=== PATIENT | female | born 1955 | race Caucasian/White ===

== ENCOUNTER → 2023-09-14 | Outpatient (CLI) | payer MEDICARE | LOC: RESCLI 14:54 | PROVIDERS: ATTEND Internal Medicine | DX: I50.9 Heart failure, unspecified (principal); R11.0 Nausea; R56.9 Unspecified convulsions; F41.9 Anxiety disorder, unspecified; Z79.899 Other long term (current) drug therapy; Z86.711 Personal history of pulmonary embolism ==

== ENCOUNTER 2024-12-01 12:15 | Inpatient (IN) | payer MEDICARE ==
[~2024-12-01] VITALS: Ht 157.5 cm; Wt 51.7 kg
[2024-12-01] MEDS ORDERED: DIOVAN80 M1 PO (12:49)
[2024-12-01] MEDS ORDERED: SENNA8.6 MG PO (12:50)
[2024-12-01] MEDS ORDERED: AMITRIPTYLINE25 MG PO (12:51)
[2024-12-01] MEDS ORDERED: ZOLOFT100 MG PO (12:51)
[2024-12-01] MEDS ORDERED: COREG6.25 MG PO (12:52)
[2024-12-01] MEDS ORDERED: SINGULAIR10 M1 PO (12:55)
[2024-12-01] MEDS ORDERED: XARELTO15 M1 PO (12:57)
[2024-12-01] MEDS ORDERED: 8 HOUR650 MG PO (12:58)
[2024-12-01] MEDS ORDERED: KEPPRA500 MG PO (12:58)
[2024-12-01] MEDS ORDERED: LORAZEPAM0.5 M1 PO (12:59)
[2024-12-01] MEDS ORDERED: Ziprasidone Mesylate 20 MG VIAL IM PRN (13:05)
[2024-12-01] MEDS ORDERED: LORazepam 1 MG TAB PO PRN (13:05)
[2024-12-01] MEDS ORDERED: hydrOXYzine hydrochloride 50 MG/ML VIAL IM PRN (13:05)
[2024-12-01 13:08] VITALS: BP 111/59
[2024-12-01] MEDS ORDERED: DIOVAN40 MG PO (14:10)
[2024-12-01] MEDS ORDERED: Magnesium Hydroxide 30 ML UDC PO PRN (14:40)
[2024-12-01] MEDS ORDERED: ACETAMINOPHEN 325 MG TAB PO PRN (14:40)
[2024-12-01] MEDS ORDERED: MG-AL HYDROXIDE/SIMETICONE 30 ML UDC PO PRN (14:40)
[2024-12-01] MEDS ORDERED: Menthol/Zinc Oxide 4 GM THIN T PRN (14:50)
[2024-12-01 20:00] VITALS: BP 110/68
[2024-12-01] MEDS ORDERED: Mirtazapine 15 MG TAB PO SCH (21:00)
[2024-12-01] MEDS ORDERED: Montelukast Sodium 10 MG TAB PO SCH (21:00)
[2024-12-01] MEDS ORDERED: CARVEDILOL 6.25 MG TAB PO SCH (21:00)
[2024-12-01] MEDS ORDERED: LEVETIRACETAM 500 MG TAB PO SCH (21:00)
[2024-12-01] MEDS ORDERED: Memantine Hydrochloride 5 MG TAB PO SCH (22:00)
[2024-12-02 06:37] LABS: HEMATOCRIT 32.1 % (37.0-47.0); MEAN CELL VOLUME 88.7 fl (81.0-99.0); MEAN CORPUSCULAR HGB 29.3 pg (27.0-31.0); MEAN PLATELET VOLUME 9.4 fl (9.6-12.3); PLATELET COUNT AUTOMATED 129 10*3/uL (130-400); RED BLOOD COUNT 3.62 10*6/uL (4.10-5.10); RED CELL DISTRI WIDTH 14.4 % (0-14.5); WHITE BLOOD COUNT 15.2 10*3/uL (4.8-10.8)
[2024-12-02 07:05] LABS: ALKALINE PHOSPHATASE 132 U/L (46-116); BUN 29 mg/dl (9-23); CHLORIDE 103 mmol/L (98-107); POTASSIUM 4.5 mmol/L (3.4-5.1); SGPT/ALT 17 U/L (5-49); TOTAL PROTEIN 7.3 gm/dL (6.0-8.0)
[2024-12-02 07:08] LABS: VALPROIC ACID (DEPAKENE) < 3.0 ug/ml (50-100)
[2024-12-02 08:00] VITALS: BP 136/77
[2024-12-02 08:37] LABS: VITAMIN D, 25-HYDROXY 47.3 ng/mL (30-100)
[2024-12-02] MEDS ORDERED: RIVAROXABAN 15 MG TAB PO SCH (09:00)
[2024-12-02] MEDS ORDERED: Losartan Potassium 25 MG TAB PO SCH (09:00)
[2024-12-02] MEDS ORDERED: Rivastigmine Tartrate 4.6 MG/24 HR PATCH T SCH (09:00)
[2024-12-02 09:14] LABS: ATYPICAL LYMPHS 1 % (0-0); TOTAL CELLS COUNTED 100 #CELLS
[2024-12-02 09:15] LABS: OVALOCYTES FEW
[2024-12-02 09:16] LABS: PLATELET SUFFICIENCY LOW (NORMAL); SCHISTOCYTES FEW
[2024-12-02] MEDS ORDERED: hydrOXYzine hydrochloride 50 MG/ML VIAL IM SCH (09:45)
[2024-12-02] MEDS ORDERED: hydrOXYzine pamoate 25 MG CAP PO SCH (18:00)
[2024-12-02 19:36] LABS: BILIRUBIN Negative (Negative); BLOOD Negative (Negative); CLARITY Clear (Clear); COLOR Yellow (Yellow); GLUCOSE Negative (Negative); KETONE Negative (Negative); LEUKO ESTERASE Negative (Negative); NITRITE Negative (Negative); PH 5.5 (4.5-8.0); SPECIFIC GRAVITY 1.015 (1.001-1.030); UROBILINOGEN 0.2 E.U./dl (0.0-1.0)
[2024-12-02 19:44] LABS: BACTERIA TRACE
[2024-12-02 20:00] VITALS: BP 138/71
[2024-12-03] MEDS ORDERED: Water, Sterile 10 ML VIAL ONE (00:39)
[2024-12-03 08:03] VITALS: BP 116/60
[2024-12-03 09:16] LABS: HEMATOCRIT 31.9 % (37.0-47.0); MEAN CELL VOLUME 88.9 fl (81.0-99.0); MEAN CORPUSCULAR HGB CONC 32.6 g/dl (33.0-37.0); MEAN PLATELET VOLUME 9.4 fl (9.6-12.3); PLATELET COUNT AUTOMATED 115 10*3/uL (130-400); RED BLOOD COUNT 3.59 10*6/uL (4.10-5.10); RED CELL DISTRI WIDTH 14.1 % (0-14.5); WHITE BLOOD COUNT 10.7 10*3/uL (4.8-10.8)
[2024-12-03 09:19] LABS: MANUAL DIFF REFLEX YES
[2024-12-03 09:40] LABS: POTASSIUM 4.6 mmol/L (3.4-5.1)
[2024-12-03 09:50] LABS: TOTAL CELLS COUNTED 100 #CELLS
[2024-12-03 09:54] LABS: OVALOCYTES FEW; PLATELET SUFFICIENCY LOW (NORMAL)
[2024-12-03 20:00] VITALS: BP 102/54
[2024-12-03] MEDS ORDERED: Memantine Hydrochloride 5 MG TAB PO SCH (21:00)
[2024-12-04 08:00] VITALS: BP 114/53
[2024-12-04 20:00] VITALS: BP 130/90
[2024-12-04] MEDS ORDERED: Memantine Hydrochloride 10 MG TAB PO SCH (21:00)
[2024-12-05 08:00] VITALS: BP 141/64
[2024-12-05] MEDS ORDERED: Rivastigmine Tartrate 9.5 MG/24 HR PATCH T SCH (09:00)
[2024-12-05 20:00] VITALS: BP 116/50
[2024-12-05] MEDS ORDERED: RAMELTEON 8 MG TAB PO SCH (21:00)
[2024-12-06 08:00] VITALS: BP 134/74
[2024-12-06 20:00] VITALS: BP 137/73
[2024-12-06] MEDS ORDERED: hydrOXYzine hydrochloride 50 MG/ML VIAL IM SCH (21:00)
[2024-12-07 08:01] VITALS: BP 122/59
[2024-12-07] MEDS ORDERED: hydrOXYzine hydrochloride 50 MG/ML VIAL IM SCH (09:00)
[2024-12-07] MEDS ORDERED: hydrOXYzine pamoate 25 MG CAP PO SCH (13:00)
[2024-12-07 20:00] VITALS: BP 113/54
[2024-12-08 08:00] VITALS: BP 100/77
[2024-12-08] MEDS ORDERED: RIVASTIGMINE 13.3 MG/24 HR TDM T SCH (09:00)
[2024-12-08 20:00] VITALS: BP 116/46
[2024-12-09 07:48] LABS: POTASSIUM 4.8 mmol/L (3.4-5.1); TOTAL PROTEIN 6.8 gm/dL (6.0-8.0)
[2024-12-09 07:55] LABS: HEMATOCRIT 32.6 % (37.0-47.0); MEAN CELL VOLUME 89.6 fl (81.0-99.0); MEAN CORPUSCULAR HGB 28.8 pg (27.0-31.0); MEAN CORPUSCULAR HGB CONC 32.2 g/dl (33.0-37.0); MEAN PLATELET VOLUME 9.6 fl (9.6-12.3); PLATELET COUNT AUTOMATED 127 10*3/uL (130-400); RED BLOOD COUNT 3.64 10*6/uL (4.10-5.10); RED CELL DISTRI WIDTH 13.9 % (0-14.5); WHITE BLOOD COUNT 17.2 10*3/uL (4.8-10.8)
[2024-12-09 08:00] VITALS: BP 106/77
[2024-12-09 09:32] LABS: MANUAL DIFF REFLEX YES
[2024-12-09 09:36] LABS: ATYPICAL LYMPHS 6 % (0-0); PLATELET SUFFICIENCY NORMAL (NORMAL); TOTAL CELLS COUNTED 100 #CELLS
[2024-12-09] MEDS ORDERED: LEVOFLOXACIN 500 MG TAB PO SCH (10:30)
[2024-12-09] MEDS ORDERED: SODIUM CHLORIDE 0.9% 1,000 ML IV ONE (15:00)
[2024-12-09 22:00] VITALS: BP 127/60
[2024-12-10 07:18] LABS: HEMATOCRIT 27.8 % (37.0-47.0); MEAN CELL VOLUME 90.8 fl (81.0-99.0); MEAN CORPUSCULAR HGB 28.8 pg (27.0-31.0); MEAN CORPUSCULAR HGB CONC 31.7 g/dl (33.0-37.0); MEAN PLATELET VOLUME 9.8 fl (9.6-12.3); PLATELET COUNT AUTOMATED 108 10*3/uL (130-400); RED BLOOD COUNT 3.06 10*6/uL (4.10-5.10); RED CELL DISTRI WIDTH 13.9 % (0-14.5); WHITE BLOOD COUNT 11.7 10*3/uL (4.8-10.8)
[2024-12-10 07:47] LABS: MANUAL DIFF REFLEX YES
[2024-12-10] MEDS ORDERED: SODIUM CHLORIDE 0.9% 1,000 ML IV ONE (08:07)
[2024-12-10 08:19] VITALS: BP 105/51
[2024-12-10 09:41] LABS: ATYPICAL LYMPHS 4 % (0-0); TOTAL CELLS COUNTED 100 #CELLS
[2024-12-10 09:42] LABS: PLATELET SUFFICIENCY LOW (NORMAL)
[2024-12-10 11:30] LABS: POTASSIUM 4.8 mmol/L (3.4-5.1)
[2024-12-10] MEDS ORDERED: hydrOXYzine pamoate 25 MG CAP PO SCH (13:00)
[2024-12-10 20:00] VITALS: BP 122/62
[2024-12-11 06:30] LABS: POTASSIUM 4.4 mmol/L (3.4-5.1)
[2024-12-11 06:43] LABS: HEMATOCRIT 29.7 % (37.0-47.0); MEAN CELL VOLUME 92.2 fl (81.0-99.0); MEAN CORPUSCULAR HGB 29.5 pg (27.0-31.0); MEAN PLATELET VOLUME 9.7 fl (9.6-12.3); PLATELET COUNT AUTOMATED 112 10*3/uL (130-400); RED BLOOD COUNT 3.22 10*6/uL (4.10-5.10); RED CELL DISTRI WIDTH 13.6 % (0-14.5); RETICULOCYTE % 1.31 % (0.50-2.50); WHITE BLOOD COUNT 10.2 10*3/uL (4.8-10.8)
[2024-12-11 06:45] LABS: MANUAL DIFF REFLEX YES
[2024-12-11 07:52] LABS: PLATELET SUFFICIENCY LOW (NORMAL); POLYCHROMASIA SLIGHT; TOTAL CELLS COUNTED 100 #CELLS
[2024-12-11 07:53] LABS: OVALOCYTES FEW
[2024-12-11 08:00] VITALS: BP 147/85
[2024-12-11] MEDS ORDERED: hydrOXYzine pamoate 25 MG CAP PO SCH (13:00)
[2024-12-11 20:00] VITALS: BP 144/73
[2024-12-11] MEDS ORDERED: carBAMazepine 200 MG TAB PO SCH (21:00)
[2024-12-12 08:00] VITALS: BP 113/53
[2024-12-12 20:00] VITALS: BP 128/64; BP 132/78
[2024-12-13 08:00] VITALS: BP 150/73
[2024-12-13] MEDS ORDERED: FOLIC ACID 1 MG TAB PO SCH (09:00)
[2024-12-13 11:22] LABS: BILIRUBIN Negative (Negative); BLOOD Negative (Negative); CLARITY Clear (Clear); COLOR Yellow (Yellow); GLUCOSE Negative (Negative); KETONE Negative (Negative); LEUKO ESTERASE Negative (Negative); NITRITE Negative (Negative); UROBILINOGEN 0.2 E.U./dl (0.0-1.0)
[2024-12-13 11:59] LABS: BACTERIA 1+; RBC 0-2 rbc/hpf (0-2)
[2024-12-13] MEDS ORDERED: Ondansetron Hydrochloride 4 MG/2 ML VIAL IV PRN (19:15)
[2024-12-13 20:00] VITALS: BP 174/83
[2024-12-13] MEDS ORDERED: Ondansetron Hydrochloride 4 MG TAB PO PRN (23:30)
[2024-12-14 08:00] VITALS: BP 155/78
[2024-12-14 08:05] LABS: HEMATOCRIT 30.4 % (37.0-47.0); MEAN CELL VOLUME 86.9 fl (81.0-99.0); MEAN CORPUSCULAR HGB 28.9 pg (27.0-31.0); MEAN CORPUSCULAR HGB CONC 33.2 g/dl (33.0-37.0); MEAN PLATELET VOLUME 9.7 fl (9.6-12.3); PLATELET COUNT AUTOMATED 104 10*3/uL (130-400); RED CELL DISTRI WIDTH 13.4 % (0-14.5); WHITE BLOOD COUNT 15.4 10*3/uL (4.8-10.8)
[2024-12-14 08:25] LABS: POTASSIUM 3.9 mmol/L (3.4-5.1); TOTAL PROTEIN 6.4 gm/dL (6.0-8.0)
[2024-12-14 08:48] LABS: MANUAL DIFF REFLEX YES
[2024-12-14 08:50] LABS: TOTAL CELLS COUNTED 100 #CELLS
[2024-12-14 08:51] LABS: PLATELET SUFFICIENCY LOW (NORMAL)
[2024-12-14] MEDS ORDERED: hydrOXYzine pamoate 25 MG CAP PO SCH (09:00)
[2024-12-14 20:00] VITALS: BP 132/66
[2024-12-15 08:00] VITALS: BP 96/77
[2024-12-15] MEDS ORDERED: MED. FROM HOME 1 EACH EA PO SCH (10:00)
[2024-12-15 20:00] VITALS: BP 168/55
[2024-12-16 08:00] VITALS: BP 103/73
[2024-12-16 20:00] VITALS: BP 147/92
[2024-12-17 08:11] VITALS: BP 115/56
[2024-12-17] MEDS ORDERED: hydrOXYzine pamoate 25 MG CAP PO PRN (10:50)
[2024-12-17 20:00] VITALS: BP 144/71
[2024-12-18 08:14] VITALS: BP 123/72
[2024-12-18] MEDS ORDERED: CARBAMAZEPINE200 MG PO (14:13)
[2024-12-18] MEDS ORDERED: HOMEMED PO (18:18)
[2024-12-18] MEDS ORDERED: HYDROXYZINE PAM25 M1 PO (18:18)
[2024-12-18] MEDS ORDERED: RIVASTIGMINE1 EAC2 T (18:18)
[2024-12-18] MEDS ORDERED: NATURE'S BLEND F1 MG PO (18:18)
[2024-12-18] MEDS ORDERED: MEMANTINE HCL10 MG PO (18:18)
[2024-12-18 20:00] VITALS: BP 149/80
[2024-12-18] MEDS ORDERED: MED. FROM HOME 1 EACH EA PO SCH (21:00)
[2024-12-19 08:00] VITALS: BP 139/74
== END 2024-12-19 13:16 | disposition home or self-care (01) | DRG 883 ==
LOC: 3N 12:15
PROVIDERS: Counselor Professional; Internal Medicine; Registered Nurse; ADMIT Psychiatry & Neurology Psychiatry; ATTEND Psychiatry & Neurology Psychiatry
PROC: GZHZZZZ Group Psychotherapy (ICD-10-PCS; principal; 2024-12-05)
PROC: GZ56ZZZ Individual Psychotherapy, Supportive (ICD-10-PCS; 2024-12-05)
DX: F63.81 Intermittent explosive disorder (principal); N17.0 Acute kidney failure with tubular necrosis; A41.9 Sepsis, unspecified organism; N30.00 Acute cystitis without hematuria; F02.83 Dementia in other diseases classified elsewhere, unspecified severity, with mood disturbance; F02.84 Dementia in other diseases classified elsewhere, unspecified severity, with anxiety; I25.10 Atherosclerotic heart disease of native coronary artery without angina pectoris; G40.909 Epilepsy, unspecified, not intractable, without status epilepticus; G43.909 Migraine, unspecified, not intractable, without status migrainosus; G30.9 Alzheimer's disease, unspecified; D69.6 Thrombocytopenia, unspecified; R73.9 Hyperglycemia, unspecified; Z79.899 Other long term (current) drug therapy; Z79.01 Long term (current) use of anticoagulants; Z79.2 Long term (current) use of antibiotics; Z88.0 Allergy status to penicillin; Z88.8 Allergy status to other drugs, medicaments and biological substances; Z91.09 Other allergy status, other than to drugs and biological substances; Z86.718 Personal history of other venous thrombosis and embolism; Z86.711 Personal history of pulmonary embolism; Z86.73 Personal history of transient ischemic attack (TIA), and cerebral infarction without residual deficits

== ENCOUNTER 2025-01-08 15:24 | Emergency (ER) | payer MEDICARE ==
[~2025-01-08] VITALS: Ht 157.4 cm; Wt 49.0 kg
[~2025-01-08 15:24] MED LIST: 8 HOUR650 MG PO; AMITRIPTYLINE25 MG PO; CARBAMAZEPINE200 MG PO; COREG6.25 MG PO; DIOVAN40 MG PO; DIOVAN80 M1 PO; HOMEMED PO; HYDROXYZINE PAM25 M1 PO; KEPPRA500 MG PO; LORAZEPAM0.5 M1 PO; MEMANTINE HCL10 MG PO; NATURE'S BLEND F1 MG PO; RIVASTIGMINE1 EAC2 T; SENNA8.6 MG PO; SINGULAIR10 M1 PO; XARELTO15 M1 PO; ZOLOFT100 MG PO
[2025-01-08 16:38] LABS: HEMATOCRIT 30.7 % (37.0-47.0); MEAN CORPUSCULAR HGB CONC 32.2 g/dl (33.0-37.0); MEAN PLATELET VOLUME 9.4 fl (9.6-12.3); PLATELET COUNT AUTOMATED 95 10*3/uL (130-400); RED BLOOD COUNT 3.53 10*6/uL (4.10-5.10); RED CELL DISTRI WIDTH 13.4 % (0-14.5); WHITE BLOOD COUNT 10.6 10*3/uL (4.8-10.8)
[2025-01-08 16:57] LABS: BUN 30 mg/dl (9-23); CHLORIDE 99 mmol/L (98-107)
[2025-01-08 17:02] LABS: MANUAL DIFF REFLEX YES
[2025-01-08 17:07] LABS: ETHYL ALCOHOL < 3.0 mg/dl (<3)
[2025-01-08 17:37] LABS: ATYPICAL LYMPHS 2 % (0-0); OVALOCYTES FEW; PLATELET SUFFICIENCY LOW (NORMAL); TOTAL CELLS COUNTED 100 #CELLS
[2025-01-08 17:38] LABS: BURR CELLS FEW; SCHISTOCYTES FEW
[2025-01-08 18:01] LABS: BILIRUBIN Negative (Negative); BLOOD Negative (Negative); CLARITY Cloudy (Clear); COLOR Yellow (Yellow); GLUCOSE Negative (Negative); KETONE Trace (Negative); LEUKO ESTERASE Negative (Negative); NITRITE Negative (Negative); UROBILINOGEN 0.2 E.U./dl (0.0-1.0)
[2025-01-08 18:07] LABS: URINE AMPHETAMINES Negative (1000ng/ml); URINE BARBITURATES Negative (200ng/ml); URINE BENZODIAZEPINES Negative (200ng/ml); URINE CANNABINOIDS (THC) Negative (50ng/ml); URINE COCAINE Negative (300ng/ml); URINE METHADONE Negative (300ng/ml); URINE OPIATES Negative (300ng/ml); URINE PHENCYCLIDINE Negative (25ng/ml)
[2025-01-08 18:08] LABS: BACTERIA 4+; RBC 0-2 rbc/hpf (0-2)
[2025-01-08 18:09] LABS: MUCOUS 1+
[2025-01-08] MEDS ORDERED: hydrOXYzine pamoate 25 MG CAP PO ONE (19:25)
[2025-01-08] MEDS ORDERED: MYRBETRIQ50 M1 PO (22:25)
[2025-01-08] MEDS ORDERED: ATIVAN1 MG PO (22:27)
[2025-01-08] MEDS ORDERED: RISPERDAL0.5 MG PO (22:27)
[2025-01-08] MEDS ORDERED: VISTARIL25 MG PO (22:28)
[2025-01-08] MEDS ORDERED: GEODON20 MG/1 ML IM (22:29)
== END 2025-01-08 19:38 ==
LOC: ED 15:24
PROVIDERS: Emergency Medicine; Physician Assistant Medical
DX: F32.A Depression, unspecified (principal); R45.6 Violent behavior; R39.15 Urgency of urination; R30.9 Painful micturition, unspecified; G30.9 Alzheimer's disease, unspecified; I25.10 Atherosclerotic heart disease of native coronary artery without angina pectoris; Z88.1 Allergy status to other antibiotic agents; Z88.5 Allergy status to narcotic agent; Z88.2 Allergy status to sulfonamides; Z79.899 Other long term (current) drug therapy; Z86.718 Personal history of other venous thrombosis and embolism; Z86.711 Personal history of pulmonary embolism; Z20.822 Contact with and (suspected) exposure to COVID-19

== ENCOUNTER 2025-01-08 20:39 | Inpatient (IN) | payer MEDICARE ==
[~2025-01-08] VITALS: Ht 157.4 cm; Wt 46.4 kg
[2025-01-08] MEDS ORDERED: Magnesium Hydroxide 30 ML UDC PO PRN (21:55)
[2025-01-08] MEDS ORDERED: MG-AL HYDROXIDE/SIMETICONE 30 ML UDC PO PRN (21:55)
[2025-01-08] MEDS ORDERED: ACETAMINOPHEN 325 MG TAB PO PRN (21:55)
[2025-01-08] MEDS ORDERED: Menthol/Zinc Oxide 4 GM THIN T PRN (22:20)
[2025-01-08] MEDS ORDERED: MYRBETRIQ50 M1 PO (22:25)
[2025-01-08] MEDS ORDERED: ATIVAN1 MG PO (22:27)
[2025-01-08] MEDS ORDERED: RISPERDAL0.5 MG PO (22:27)
[2025-01-08] MEDS ORDERED: VISTARIL25 MG PO (22:28)
[2025-01-08] MEDS ORDERED: GEODON20 MG/1 ML IM (22:29)
[2025-01-08] MEDS ORDERED: LORazepam 1 MG TAB PO PRN (22:35)
[2025-01-08] MEDS ORDERED: Ziprasidone Mesylate 20 MG VIAL IM PRN (22:35)
[2025-01-08] MEDS ORDERED: hydrOXYzine pamoate 25 MG CAP PO PRN (22:35)
[2025-01-08 23:06] LABS: BILIRUBIN Negative (Negative); BLOOD Negative (Negative); CLARITY Clear (Clear); COLOR Yellow (Yellow); GLUCOSE Negative (Negative); KETONE Negative (Negative); LEUKO ESTERASE Negative (Negative); NITRITE Negative (Negative); PH 6.5 (4.5-8.0); SPECIFIC GRAVITY <= 1.005 (1.001-1.030); UROBILINOGEN 0.2 E.U./dl (0.0-1.0)
[2025-01-08 23:24] LABS: BACTERIA 1+; HYALINE CAST 0-2; MUCOUS TRACE; WBC 0-2 wbc/hpf (0-5)
[2025-01-09 06:22] LABS: HEMATOCRIT 31.3 % (37.0-47.0); MEAN CELL VOLUME 84.1 fl (81.0-99.0); MEAN CORPUSCULAR HGB 28.5 pg (27.0-31.0); MEAN CORPUSCULAR HGB CONC 33.9 g/dl (33.0-37.0); MEAN PLATELET VOLUME 9.5 fl (9.6-12.3); PLATELET COUNT AUTOMATED 98 10*3/uL (130-400); RED BLOOD COUNT 3.72 10*6/uL (4.10-5.10); RED CELL DISTRI WIDTH 13.4 % (0-14.5); WHITE BLOOD COUNT 13.8 10*3/uL (4.8-10.8)
[2025-01-09 06:30] LABS: MANUAL DIFF REFLEX YES
[2025-01-09 06:52] LABS: ALKALINE PHOSPHATASE 121 U/L (46-116); BUN 22 mg/dl (9-23); CHLORIDE 101 mmol/L (98-107); CHOLESTEROL 163 mg/dL (<200); FREE T4 1.14 ng/dl (0.89-1.76); LDL CHOLESTEROL 92 mg/dL (9-159); POTASSIUM 3.8 mmol/L (3.4-5.1); SGPT/ALT 10 U/L (5-49); TOTAL PROTEIN 6.5 gm/dL (6.0-8.0); TRIGLYCERIDES 115 mg/dl (<150)
[2025-01-09 07:02] LABS: B-hCG (QUALITATIVE) BORDERLINE (NEGATIVE)
[2025-01-09 07:22] LABS: BASOPHILS 1 % (0-1); TOTAL CELLS COUNTED 100 #CELLS
[2025-01-09 07:23] LABS: OVALOCYTES FEW
[2025-01-09 07:24] LABS: SCHISTOCYTES FEW
[2025-01-09 07:26] LABS: PLATELET SUFFICIENCY LOW (NORMAL)
[2025-01-09 08:00] VITALS: BP 159/79
[2025-01-09] MEDS ORDERED: carBAMazepine 200 MG TAB PO SCH (09:00)
[2025-01-09] MEDS ORDERED: RIVAROXABAN 15 MG TAB PO SCH (09:00)
[2025-01-09] MEDS ORDERED: CARVEDILOL 6.25 MG TAB PO SCH (09:00)
[2025-01-09] MEDS ORDERED: Losartan Potassium 25 MG TAB PO SCH (09:00)
[2025-01-09] MEDS ORDERED: RIVASTIGMINE 13.3 MG/24 HR TDM T SCH (09:00)
[2025-01-09] MEDS ORDERED: FOLIC ACID 1 MG TAB PO SCH (09:00)
[2025-01-09] MEDS ORDERED: Memantine Hydrochloride 10 MG TAB PO SCH (09:00)
[2025-01-09] MEDS ORDERED: risperiDONE 0.5 MG TAB PO SCH (09:00)
[2025-01-09] MEDS ORDERED: MIRABEGRON 50 MG PO SCH (10:00)
[2025-01-09] MEDS ORDERED: IOHEXOL 300 MG/ML 100 ML VIAL IV ONE (11:15)
[2025-01-09] MEDS ORDERED: IOHEXOL 300 MG/ML 100 ML VIAL ONE (11:38)
[2025-01-09 14:00] VITALS: BP 159/79
[2025-01-09] MEDS ORDERED: Montelukast Sodium 10 MG TAB PO SCH (21:00)
[2025-01-10 08:00] VITALS: BP 143/76
[2025-01-10 08:35] LABS: VITAMIN D, 25-HYDROXY 43.2 ng/mL (30-100)
[2025-01-10] MEDS ORDERED: HALOPERIDOL 5 MG TAB PO ONE (11:10)
[2025-01-10] MEDS ORDERED: risperiDONE 0.5 MG TAB PO SCH (13:00)
[2025-01-10 20:00] VITALS: BP 106/68
[2025-01-11 06:00] LABS: POTASSIUM 4.6 mmol/L (3.4-5.1)
[2025-01-11 06:13] LABS: HEMATOCRIT 32.1 % (37.0-47.0); MEAN CELL VOLUME 85.8 fl (81.0-99.0); MEAN CORPUSCULAR HGB 28.1 pg (27.0-31.0); MEAN CORPUSCULAR HGB CONC 32.7 g/dl (33.0-37.0); MEAN PLATELET VOLUME 10.4 fl (9.6-12.3); PLATELET COUNT AUTOMATED 92 10*3/uL (130-400); RED BLOOD COUNT 3.74 10*6/uL (4.10-5.10); RED CELL DISTRI WIDTH 13.3 % (0-14.5); WHITE BLOOD COUNT 13.6 10*3/uL (4.8-10.8)
[2025-01-11 06:20] LABS: MANUAL DIFF REFLEX YES
[2025-01-11 06:59] LABS: PLATELET SUFFICIENCY LOW (NORMAL); TOTAL CELLS COUNTED 100 #CELLS
[2025-01-11 07:00] LABS: BURR CELLS FEW; OVALOCYTES FEW
[2025-01-11 07:01] LABS: SCHISTOCYTES FEW
[2025-01-11 08:29] VITALS: BP 141/73
[2025-01-11 20:00] VITALS: BP 115/58
[2025-01-12 08:00] VITALS: BP 124/59
[2025-01-12 20:00] VITALS: BP 130/64
[2025-01-12] MEDS ORDERED: Albuterol Sulf/Ipratropium 3 ML VIAL NEB ONE (22:34)
[2025-01-13 06:47] LABS: HEMATOCRIT 32.7 % (37.0-47.0); MEAN CELL VOLUME 86.5 fl (81.0-99.0); MEAN CORPUSCULAR HGB 27.8 pg (27.0-31.0); MEAN CORPUSCULAR HGB CONC 32.1 g/dl (33.0-37.0); MEAN PLATELET VOLUME 9.9 fl (9.6-12.3); PLATELET COUNT AUTOMATED 89 10*3/uL (130-400); RED BLOOD COUNT 3.78 10*6/uL (4.10-5.10); RED CELL DISTRI WIDTH 13.3 % (0-14.5); WHITE BLOOD COUNT 14.9 10*3/uL (4.8-10.8)
[2025-01-13 07:14] LABS: MANUAL DIFF REFLEX YES
[2025-01-13 07:15] LABS: POTASSIUM 4.1 mmol/L (3.4-5.1)
[2025-01-13] MEDS ORDERED: Iodixanol 320 100 ML VIAL IV ONE (07:25)
[2025-01-13] MEDS ORDERED: SODIUM CHLORIDE 0.9% 1,000 ML IV ONE (07:30)
[2025-01-13 07:34] LABS: ATYPICAL LYMPHS 4 % (0-0); TOTAL CELLS COUNTED 100 #CELLS
[2025-01-13 07:37] LABS: PLATELET SUFFICIENCY LOW (NORMAL)
[2025-01-13 08:57] VITALS: BP 110/45
[2025-01-13] MEDS ORDERED: MED. FROM HOME 1 EACH EA PO SCH (09:00)
[2025-01-13] MEDS ORDERED: RIVASTIGMINE1 EAC2 T (09:10)
[2025-01-13] MEDS ORDERED: MEMANTINE HCL10 MG PO (09:10)
== END 2025-01-13 09:40 | disposition short-term general hospital (02) | DRG 883 ==
LOC: 3N 20:39 → 5E 01-13 09:17 → 3N 01-13 09:19
PROVIDERS: Counselor Professional; Family Medicine; ADMIT Psychiatry & Neurology Psychiatry; ATTEND Psychiatry & Neurology Psychiatry
PROC: GZHZZZZ Group Psychotherapy (ICD-10-PCS; principal; 2025-01-08)
PROC: GZ51ZZZ Individual Psychotherapy, Behavioral (ICD-10-PCS; 2025-01-08)
DX: F63.81 Intermittent explosive disorder (principal); R65.10 Systemic inflammatory response syndrome (SIRS) of non-infectious origin without acute organ dysfunction; F02.811 Dementia in other diseases classified elsewhere, unspecified severity, with agitation; E87.1 Hypo-osmolality and hyponatremia; F02.83 Dementia in other diseases classified elsewhere, unspecified severity, with mood disturbance; F33.2 Major depressive disorder, recurrent severe without psychotic features; I25.10 Atherosclerotic heart disease of native coronary artery without angina pectoris; D69.6 Thrombocytopenia, unspecified; G30.9 Alzheimer's disease, unspecified; D50.9 Iron deficiency anemia, unspecified; G43.909 Migraine, unspecified, not intractable, without status migrainosus; R73.9 Hyperglycemia, unspecified; R29.6 Repeated falls; Z86.718 Personal history of other venous thrombosis and embolism; Z86.711 Personal history of pulmonary embolism; Z86.73 Personal history of transient ischemic attack (TIA), and cerebral infarction without residual deficits; Z88.1 Allergy status to other antibiotic agents; Z88.5 Allergy status to narcotic agent; Z88.2 Allergy status to sulfonamides; Z88.8 Allergy status to other drugs, medicaments and biological substances; Z79.899 Other long term (current) drug therapy